=== PATIENT | female | born 1980 | race Two or more races ===

== ENCOUNTER → 2019-04-13 | Outpatient (CLI) | payer OTHER | END | disposition home or self-care (01) | LOC: LAB 13:33 | PROVIDERS: ATTEND Nurse Practitioner | DX: Z02.1 Encounter for pre-employment examination (principal) | CPT/HCPCS: 86735; 86762; 86765; 86787 ==

== ENCOUNTER 2020-09-06 18:29 | Emergency (ER) | payer MEDICAID, OTHER ==
[~2020-09-06] VITALS: Ht 157.5 cm; Wt 61.2 kg
[2020-09-06 19:09] LABS: Basophils # (auto) 0.1 10 ^3/uL (0-0.2); Basophils % (auto) 0.9 % (0.0-2.0); Eosinophils # (auto) 0.1 10 ^3/uL (0-0.8); Eosinophils % (auto) 2.1 % (0.0-7.0); Hematocrit 37.1 % (36.0-46.0); Hemoglobin 12.7 g/dL (12.2-16.2); Lymphocytes % (auto) 33.5 % (10.0-50.0); Mean Corpuscular Hemoglobin 29.7 pg (28.0-32.0); Mean Corpuscular Hgb Conc. 34.1 g/dL (32.0-36.0); Mean Corpuscular Volume 87.1 fL (80.0-100.0); Monocytes # (auto) 0.4 10 ^3/uL (0-1.3); Monocytes % (auto) 7.1 % (0.0-12.0); Neutrophils # (auto) 3.4 10 ^3/uL (1.6-8.6); Neutrophils % (auto) 56.4 % (37.0-80.0); Nucleated Red Blood Cells % 0.2 %; Platelet Count (auto) 315 10^3/uL (140-450); Red Blood Cells 4.26 10^6/uL (4.0-5.20); Red Cell Distribution Width 13.7 % (11.8-14.3); White Blood Cell 6.1 10^3/uL (4.4-10.8)
[2020-09-06 19:16] LABS: Albumin 4.2 g/dL (3.4-5.0); Anion Gap 4 (5-15); Blood Urea Nitrogen 10 mg/dL (7-18); Calcium 8.8 mg/dL (8.5-10.1); Carbon Dioxide 29 mmol/L (21-32); Chloride 109 mmol/L (98-107); Glucose 107 mg/dL (74-106); Potassium 3.5 mmol/L (3.5-5.1); Sodium 142 mmol/L (136-145)
[2020-09-06 19:21] LABS: Alanine Aminotransferase 20 U/L (13-56); Alkaline Phosphatase 81 U/L (45-117); Aspartate Aminotransferase 19 U/L (15-37); BUN/Creatinine Ratio 12.2; Bilirubin, Total 0.1 mg/dL (0.2-1.0); GFR African American 98 mL/min; GFR Non-African American 81 mL/min; Total Protein 8.1 g/dL (6.4-8.2)
[2020-09-06 19:38] LABS: Urine Bacteria NONE SEEN /hpf (None Seen); Urine Blood 1+ /uL (Negative); Urine Specific Gravity 1.022 (1.001-1.035); Urine WBC <1 /hpf (0 - 5)
[2020-09-06 22:10] VITALS: BP 111/71
== END 2020-09-06 23:54 | disposition home or self-care (01) ==
LOC: ER 18:29
DX: I24.9 Acute ischemic heart disease, unspecified (principal); R07.2 Precordial pain
CPT/HCPCS: 36415; 71045; 80053; 81001; 81025; 84484; 85025; 85379; 93005

== ENCOUNTER 2020-11-14 18:35 | Emergency (ER) | payer MEDICAID ==
[~2020-11-14] VITALS: Ht 157.5 cm; Wt 56.7 kg
[2020-11-14 18:43] VITALS: BP 128/74
== END 2020-11-14 20:25 | disposition home or self-care (01) ==
LOC: ER 18:40
DX: S61.210A Laceration without foreign body of right index finger without damage to nail, initial encounter (principal); S61.212A Laceration without foreign body of right middle finger without damage to nail, initial encounter; W26.8XXA Contact with other sharp object(s), not elsewhere classified, initial encounter; Y93.89 Activity, other specified; Y92.89 Other specified places as the place of occurrence of the external cause; Y99.8 Other external cause status
CPT/HCPCS: 12002

== ENCOUNTER → 2022-05-28 | Outpatient (CLI) | payer MEDICAID ==
[2022-05-28 10:14] LABS: Basophils # (auto) 0 10 ^3/uL (0-0.2); Basophils % (auto) 0.8 % (0.0-2.0); Eosinophils # (auto) 0.1 10 ^3/uL (0-0.8); Eosinophils % (auto) 1.7 % (0.0-7.0); Hematocrit 39.8 % (36.0-46.0); Hemoglobin 12.9 g/dL (12.2-16.2); Lymphocytes # (auto) 1.6 10 ^3/uL (0.4-5.4); Lymphocytes % (auto) 28.8 % (10.0-50.0); Mean Corpuscular Hgb Conc. 32.3 g/dL (32.0-36.0); Mean Corpuscular Volume 86.6 fL (80.0-100.0); Monocytes # (auto) 0.4 10 ^3/uL (0-1.3); Neutrophils # (auto) 3.4 10 ^3/uL (1.6-8.6); Neutrophils % (auto) 60.7 % (37.0-80.0); Red Cell Distribution Width 13.5 % (11.8-14.3); White Blood Cell 5.6 10^3/uL (4.4-10.8)
[2022-05-28 11:15] LABS: Leuteinizing Hormone 1.1 IU/L
[2022-05-28 11:16] LABS: Follicle Stimulating Hormone 2.84 IU/L (SEE BELOW)
== END | disposition home or self-care (01) ==
LOC: LAB 09:25
PROVIDERS: ATTEND Obstetrics & Gynecology
DX: N95.1 Menopausal and female climacteric states (principal)
CPT/HCPCS: 36415; 82670; 83001; 83002; 84403; 84443; 85025

== ENCOUNTER 2022-08-16 23:33 | Emergency (ER) | payer BC, MEDICAID ==
[~2022-08-16] VITALS: Ht 157.5 cm; Wt 66.8 kg
[2022-08-17 00:05] LABS: Urine Bacteria MANY /hpf (None Seen); Urine Blood Negative /uL (Negative); Urine Mucus FEW (None Seen); Urine Specific Gravity 1.022 (1.001-1.035); Urine WBC 2 /hpf (0 - 5)
[2022-08-17 00:12] LABS: Basophils # (auto) 0.1 10 ^3/uL (0-0.2); Basophils % (auto) 0.8 % (0.0-2.0); Eosinophils # (auto) 0.3 10 ^3/uL (0-0.8); Eosinophils % (auto) 3.3 % (0.0-7.0); Hematocrit 37.8 % (36.0-46.0); Hemoglobin 12.6 g/dL (12.2-16.2); Lymphocytes % (auto) 30.9 % (10.0-50.0); Mean Corpuscular Hemoglobin 28.7 pg (28.0-32.0); Mean Corpuscular Hgb Conc. 33.4 g/dL (32.0-36.0); Mean Corpuscular Volume 85.9 fL (80.0-100.0); Monocytes % (auto) 10.1 % (0.0-12.0); Neutrophils # (auto) 5.2 10 ^3/uL (1.6-8.6); Neutrophils % (auto) 54.9 % (37.0-80.0); Red Cell Distribution Width 14.1 % (11.8-14.3); White Blood Cell 9.6 10^3/uL (4.4-10.8)
[2022-08-17 01:24] LABS: Albumin 3.8 g/dL (3.4-5.0); Calcium 8.9 mg/dL (8.5-10.1); Potassium 3.5 mmol/L (3.5-5.1)
[2022-08-17 01:35] LABS: BUN/Creatinine Ratio 16.3; Bilirubin, Total 0.2 mg/dL (0.2-1.0); Total Protein 7.6 g/dL (6.4-8.2)
[2022-08-17] MEDS ORDERED: cefTRIAXone SOD 1,000 MG VL IM ONE (03:30)
[2022-08-17] MEDS ORDERED: ONDANSETRON ODT 4 MG TAB PO ONE (03:30)
[2022-08-17] MEDS ORDERED: HYDROcodone-ACET 10/325MG TAB PO ONE (03:30)
[2022-08-17] MEDS ORDERED: CEPH-322 PO (03:44)
[2022-08-17 04:50] VITALS: BP 112/72
== END 2022-08-17 04:59 | disposition home or self-care (01) ==
LOC: EEVIPCON 23:33 → ER 23:33
DX: K80.20 Calculus of gallbladder without cholecystitis without obstruction (principal); N39.0 Urinary tract infection, site not specified; R73.9 Hyperglycemia, unspecified; R10.84 Generalized abdominal pain; N94.89 Other specified conditions associated with female genital organs and menstrual cycle; Z91.040 Latex allergy status
CPT/HCPCS: 36415; 74176; 80053; 81001; 81025; 83690; 85025; 96372; 99285; J0696; Q0162

== ENCOUNTER → 2022-08-20 | Outpatient (CLI) | payer BC, MEDICAID ==
[~2022-08-20] MED LIST: CEPH-322 PO
== END | disposition home or self-care (01) ==
LOC: LAB 11:07
PROVIDERS: ATTEND Surgery Vascular Surgery
DX: Z01.812 Encounter for preprocedural laboratory examination (principal); I72.2 Aneurysm of renal artery
CPT/HCPCS: 36415; 82565; 84520

== ENCOUNTER 2022-09-20 06:28 | Day surgery (SDC) | payer BC, MEDICAID ==
[2022-09-17 15:46] LABS: Basophils # (auto) 0.1 10 ^3/uL (0-0.2); Basophils % (auto) 1.1 % (0.0-2.0); Eosinophils # (auto) 0.2 10 ^3/uL (0-0.8); Hematocrit 39.7 % (36.0-46.0); Hemoglobin 13.2 g/dL (12.2-16.2); Lymphocytes # (auto) 2.1 10 ^3/uL (0.4-5.4); Lymphocytes % (auto) 28.2 % (10.0-50.0); Mean Corpuscular Hemoglobin 28.7 pg (28.0-32.0); Mean Corpuscular Hgb Conc. 33.3 g/dL (32.0-36.0); Mean Corpuscular Volume 86.3 fL (80.0-100.0); Monocytes # (auto) 0.6 10 ^3/uL (0-1.3); Monocytes % (auto) 8.6 % (0.0-12.0); Neutrophils # (auto) 4.3 10 ^3/uL (1.6-8.6); Neutrophils % (auto) 59.1 % (37.0-80.0); Nucleated Red Blood Cells % 0.2 %; Red Blood Cells 4.61 10^6/uL (4.0-5.20); Red Cell Distribution Width 13.9 % (11.8-14.3); White Blood Cell 7.3 10^3/uL (4.4-10.8)
[2022-09-17 15:57] LABS: Albumin 4.1 g/dL (3.4-5.0); BUN/Creatinine Ratio 18.2 (10.0-20.0); Calcium 9.2 mg/dL (8.5-10.1); Potassium 3.9 mmol/L (3.5-5.1)
[2022-09-17 16:00] LABS: Bilirubin, Total 0.2 mg/dL (0.2-1.0); Total Protein 8.1 g/dL (6.4-8.2)
[2022-09-17 16:11] LABS: INR 0.91 (0.9-1.15); Partial Thromboplastin Time 29.6 sec (24.6-33.4)
[2022-09-18 10:11] LABS: Urine WBC None Seen /hpf (0 - 5)
[2022-09-18 10:19] LABS: Urine Bacteria FEW /hpf (None Seen); Urine Blood Negative /uL (Negative); Urine Specific Gravity 1.003 (1.001-1.035)
[~2022-09-20] VITALS: Ht 157.5 cm; Wt 68.9 kg
[2022-09-20] MEDS ORDERED: PHENYLEPHRINE HCL 10 MG/ML VL IV ONE (06:29)
[2022-09-20] MEDS ORDERED: ROCURONIUM 10MG/ML 10ML VIAL IV ONE (06:29)
[2022-09-20] MEDS ORDERED: BUPIVACAINE 0.25% INJ 50ML VIAL ONE (06:43)
[2022-09-20] MEDS ORDERED: ceFAZolin 1GM/50ML 100 ML IV ONE (07:14)
[2022-09-20] MEDS ORDERED: MEPERIDINE HCL (25 MG/ML) 1ML VIAL ONE (07:39)
[2022-09-20] MEDS ORDERED: MIDAZOLAM HCL 2MG/2ML 2ml VIAL (1mg/ml) ONE (07:39)
[2022-09-20] MEDS ORDERED: fentaNYL CITRATE 100 MCG/2 ML VL ONE (07:39)
[2022-09-20] MEDS ORDERED: ONDANSETRON HCL 4 MG/2 ML VIAL ONE (08:32)
[2022-09-20] MEDS ORDERED: PROPOFOL 10 MG/ML 20 ML IV ONE (08:32)
[2022-09-20] MEDS ORDERED: DexAMETHasone SOD PHOS 10MG/1ML VIAL INJ ONE (08:32)
[2022-09-20] MEDS ORDERED: KETOROLAC TROMETH 30 MG/ML 1ML VIAL IV ONE (08:45)
[2022-09-20] MEDS ORDERED: ONDANSETRON HCL 4 MG/2 ML VIAL IV PRN ×2 (08:45→10:00)
[2022-09-20] MEDS ORDERED: MIDAZOLAM HCL 2MG/2ML 2ml VIAL (1mg/ml) IV PRN (08:45)
[2022-09-20] MEDS ORDERED: MORPHINE SULFATE 4 MG/ML SYR/VIAL IV PRN (08:45)
[2022-09-20] MEDS ORDERED: METOCLOPRAMIDE HCL 5MG/ml INJ 2ml VIAL IV PRN (08:45)
[2022-09-20] MEDS ORDERED: LABETALOL HCL 5 MG/ML 4ML SYRINGE IV PRN (08:45)
[2022-09-20] MEDS ORDERED: ePHEDrine SULFATE 50 MG/ML AMP IV PRN (08:45)
[2022-09-20] MEDS ORDERED: SUGAMMADEX 200mg/2ml Vial (100MG/ML) IV ONE (09:43)
[2022-09-20] MEDS ORDERED: ACETAMINOPHEN IV 1000 MG/100ML (10MG/ML) IV ONE (10:00)
[2022-09-20] MEDS ORDERED: LACTATED RINGER'S 1,000 ML IV SCH (10:00)
[2022-09-20] MEDS ORDERED: ACETAMINOPHEN IV 100 ML IV ONE (10:08)
[2022-09-20] MEDS: HYDROmorphone HCL 2 MG/ML VL/or syr IV PRN ×2 (10:18→10:55)
[2022-09-20 12:08] VITALS: BP 118/80
== END 2022-09-20 12:24 | disposition home or self-care (01) ==
LOC: SUR 06:28
PROVIDERS: ATTEND Obstetrics & Gynecology Gynecologic Oncology
DX: D25.9 Leiomyoma of uterus, unspecified (principal); N88.8 Other specified noninflammatory disorders of cervix uteri; N92.0 Excessive and frequent menstruation with regular cycle; R10.2 Pelvic and perineal pain; Z20.822 Contact with and (suspected) exposure to COVID-19
CPT/HCPCS: 36415; 58571; 80053; 81001; 84702; 85025; 85610; 85730; 86850; 86900; 86901; 88305; J0131; J0690; J1100; J1170; J2175; J2250; J2370; J2405; J2704; J3010; J3490; J7030; S2900; U0003

== ENCOUNTER 2022-10-08 10:05 | Inpatient (IN) | payer BC, MEDICAID ==
[~2022-10-08] VITALS: Ht 157.5 cm; Wt 65.0 kg
[2022-10-08 10:58] LABS: Urine Bacteria FEW /hpf (None Seen); Urine Blood 3+ /uL (Negative); Urine Specific Gravity 1.003 (1.001-1.035); Urine WBC <1 /hpf (0 - 5)
[2022-10-08 11:21] LABS: Basophils # (auto) 0.1 10 ^3/uL (0-0.2); Basophils % (auto) 0.7 % (0.0-2.0); Eosinophils # (auto) 0.2 10 ^3/uL (0-0.8); Eosinophils % (auto) 1.7 % (0.0-7.0); Hemoglobin 12.4 g/dL (12.2-16.2); Lymphocytes # (auto) 1.7 10 ^3/uL (0.4-5.4); Monocytes # (auto) 0.6 10 ^3/uL (0-1.3); Neutrophils # (auto) 7.1 10 ^3/uL (1.6-8.6); White Blood Cell 9.6 10^3/uL (4.4-10.8)
[2022-10-08 11:26] LABS: Hematocrit 37.3 % (36.0-46.0); Lymphocytes % (auto) 18.2 % (10.0-50.0); Mean Corpuscular Hemoglobin 28.2 pg (28.0-32.0); Mean Corpuscular Hgb Conc. 33.3 g/dL (32.0-36.0); Mean Corpuscular Volume 84.4 fL (80.0-100.0); Monocytes % (auto) 5.9 % (0.0-12.0); Neutrophils % (auto) 73.5 % (37.0-80.0); Nucleated Red Blood Cells % 0.2 %; Red Blood Cells 4.41 10^6/uL (4.0-5.20); Red Cell Distribution Width 14.2 % (11.8-14.3)
[2022-10-08 11:40] LABS: Potassium 4.5 mmol/L (3.5-5.1)
[2022-10-08 11:43] LABS: INR 0.96 (0.9-1.15); Partial Thromboplastin Time 30.5 sec (24.6-33.4)
[2022-10-08 11:50] LABS: Albumin 3.8 g/dL (3.4-5.0); BUN/Creatinine Ratio 9.8 (10.0-20.0); Bilirubin, Total 0.2 mg/dL (0.2-1.0); Calcium 9.9 mg/dL (8.5-10.1)
[2022-10-08] MEDS ORDERED: LACTATED RINGER'S 1,000 ML IV ONE (12:45)
[2022-10-08] MEDS ORDERED: SODIUM CHLORIDE 0.9% 2,000 ML IV ONE (13:15)
[2022-10-08 14:40] LABS: Hemoglobin 9.7 g/dL (12.2-16.2)
[2022-10-08 14:42] LABS: Mean Corpuscular Hemoglobin 28.3 pg (28.0-32.0); Mean Corpuscular Hgb Conc. 33.5 g/dL (32.0-36.0); Mean Corpuscular Volume 84.6 fL (80.0-100.0); Red Blood Cells 3.43 10^6/uL (4.0-5.20); Red Cell Distribution Width 13.7 % (11.8-14.3)
[2022-10-08] MEDS ORDERED: NITROGLYCERIN 0.4 MG SL TAB SL PRN (14:45)
[2022-10-08] MEDS ORDERED: MORPHINE SULFATE INJ 2 MG/ml SYRG IV PRN (14:45)
[2022-10-08 15:09] LABS: % Iron Saturation 26.1 % (15-50)
[2022-10-08 15:23] LABS: Ferritin 74.8 ng/mL (10-322)
[2022-10-08 15:24] LABS: Folate (Folic Acid) 17.19 ng/mL (5.38-24)
[2022-10-08 15:33] LABS: White Blood Cell 31.4 10^3/uL (4.4-10.8)
[2022-10-08 15:35] LABS: Basophils % (manual) 0 (0.0-2.0); Blast Cells 0; Eosinophils % (manual) 0 (0-7); Metamyelocytes % 0; Myelocytes % 0; Promyelocytes % 0; Reactive Lymphocytes 0
[2022-10-08 16:37] LABS: Band Neutrophils % (manual) 4; Lymphocytes % (manual) 5 (10.0-50.0); Monocytes % (manual) 3 (0-12)
[2022-10-08 16:49] VITALS: BP 95/62
[2022-10-08] MEDS ORDERED: LACTATED RINGER'S 1,000 ML IV SCH (17:15)
[2022-10-08] MEDS ORDERED: PIPERACILLIN-TAZOB 3.375GM 100 ML IV ONE (17:30)
[2022-10-08 17:40] VITALS: BP 117/74
[2022-10-08 17:54] LABS: Hemoglobin 9.9 g/dL (12.2-16.2)
[2022-10-08 17:55] VITALS: BP 110/68
[2022-10-08] MEDS ORDERED: PIPERACILLIN-TAZOB 3.375GM 100 ML IV SCH (22:00)
== END 2022-10-08 20:04 | disposition left against medical advice (07) | DRG 810 ==
LOC: EDBD 10:05 → EEVIPCON 10:05 → ER 10:05 → TELE 14:33 → TELE-WESTW 16:35
PROVIDERS: ADMIT Registered Nurse; ATTEND Registered Nurse
PROC: 30233N1 Transfusion of Nonautologous Red Blood Cells into Peripheral Vein, Percutaneous Approach (ICD-10-PCS; principal; 2022-10-08)
DX: N99.820 Postprocedural hemorrhage of a genitourinary system organ or structure following a genitourinary system procedure (principal); D69.6 Thrombocytopenia, unspecified; Z53.29 Procedure and treatment not carried out because of patient's decision for other reasons; D75.839 Thrombocytosis, unspecified; N83.201 Unspecified ovarian cyst, right side; Z90.710 Acquired absence of both cervix and uterus; Z91.041 Radiographic dye allergy status; D62 Acute posthemorrhagic anemia
CPT/HCPCS: 36415; 74176; 76856; 80053; 81001; 81025; 82607; 82728; 82746; 82962; 83540; 83550; 83615; 84702; 85007; 85014; 85018; 85025; 85027; 85045; 85049; 85384; 85610; 85652; 85730; 86141; 86850; 86900; 86901; 86920; 93005; 93306; 93886; 96360; 99291; G0378; J2543

== ENCOUNTER → 2023-02-13 | Outpatient (CLI) | payer MEDICAID, BC ==
[2023-02-13 15:02] LABS: Albumin 3.7 g/dL (3.4-5.0)
[2023-02-13 15:08] LABS: Alanine Aminotransferase 58 U/L (13-56); Alkaline Phosphatase 75 U/L (45-117); Aspartate Aminotransferase 25 U/L (15-37); Bilirubin, Direct < 0.1 mg/dL (0-0.2); Bilirubin, Total 0.2 mg/dL (0.2-1.0); Total Protein 7.4 g/dL (6.4-8.2)
== END | disposition home or self-care (01) ==
LOC: LAB 14:25
PROVIDERS: ATTEND Internal Medicine
DX: R74.01 Elevation of levels of liver transaminase levels (principal)
CPT/HCPCS: 36415; 80076

== ENCOUNTER → 2023-04-04 | Outpatient (CLI) | payer BC, MEDICAID ==
[2023-04-04 08:46] LABS: Anion Gap 6 (5-15); Carbon Dioxide 29 mmol/L (20-30); Chloride 106 mmol/L (98-107); Potassium 4.6 mmol/L (3.5-5.1); Sodium 141 mmol/L (136-145)
[2023-04-04 08:47] LABS: Calcium 9.6 mg/dL (8.5-10.1)
[2023-04-04 08:52] LABS: BUN/Creatinine Ratio 7.3 (10.0-20.0); Blood Urea Nitrogen 6 mg/dL (9-23); Glucose 97 mg/dL (74-106)
== END | disposition home or self-care (01) ==
LOC: LAB 08:18
PROVIDERS: ATTEND Internal Medicine
DX: R30.0 Dysuria (principal); R39.9 Unspecified symptoms and signs involving the genitourinary system
CPT/HCPCS: 36415; 80048; 83036

== ENCOUNTER 2023-05-06 08:07 | Emergency (ER) | payer BC, MEDICAID ==
[~2023-05-06] VITALS: Ht 157.5 cm; Wt 68.8 kg
[2023-05-06 08:57] LABS: Basophils # (auto) 0 10 ^3/uL (0-0.2); Basophils % (auto) 0.7 % (0.0-2.0); Eosinophils # (auto) 0.1 10 ^3/uL (0-0.8); Eosinophils % (auto) 1.5 % (0.0-7.0); Hematocrit 39.7 % (36.0-46.0); Hemoglobin 13.4 g/dL (12.2-16.2); Lymphocytes # (auto) 2.1 10 ^3/uL (0.4-5.4); Lymphocytes % (auto) 32.6 % (10.0-50.0); Mean Corpuscular Hemoglobin 29.3 pg (28.0-32.0); Mean Corpuscular Hgb Conc. 33.8 g/dL (32.0-36.0); Mean Corpuscular Volume 86.7 fL (80.0-100.0); Monocytes # (auto) 0.6 10 ^3/uL (0-1.3); Monocytes % (auto) 9.1 % (0.0-12.0); Neutrophils # (auto) 3.7 10 ^3/uL (1.6-8.6); Neutrophils % (auto) 56.1 % (37.0-80.0); Nucleated Red Blood Cells % 0.1 %; Red Blood Cells 4.58 10^6/uL (4.0-5.20); Red Cell Distribution Width 13.4 % (11.8-14.3); White Blood Cell 6.5 10^3/uL (4.4-10.8)
[2023-05-06 09:10] LABS: Alanine Aminotransferase 25 U/L (7-40); Albumin 4.8 g/dL (3.2-4.8); Alkaline Phosphatase 78 U/L (46-116); Anion Gap 6 (5-15); Aspartate Aminotransferase 17 U/L (13-40); BUN/Creatinine Ratio 9.1 (10.0-20.0); Bilirubin, Total 0.5 mg/dL (0.2-1.0); Blood Urea Nitrogen 7 mg/dL (9-23); Calcium 9.9 mg/dL (8.5-10.1); Carbon Dioxide 28 mmol/L (20-30); Chloride 105 mmol/L (98-107); Glucose 107 mg/dL (74-106); Sodium 139 mmol/L (136-145); Total Protein 7.4 g/dL (5.7-8.2); Urine Bacteria NONE SEEN /hpf (None Seen); Urine Blood Negative /uL (Negative); Urine Clarity Clear (Clear); Urine Color Yellow (Yellow); Urine Mucus FEW (None Seen); Urine Protein, UAD Negative (Negative); Urine Specific Gravity 1.018 (1.001-1.035); Urine Urobilinogen Normal (Negative); Urine WBC 1 /hpf (0 - 5); Urine pH 6.5 (5.0-8.0)
[2023-05-06 12:09] VITALS: BP 131/98; PULSE 75; RESP 18; TEMP 97.8; O2SAT 100
== END 2023-05-06 12:14 | disposition home or self-care (01) ==
LOC: ER 08:07 → EEVIPCON 08:07 → ER 12:13
DX: R07.89 Other chest pain (principal); R61 Generalized hyperhidrosis; R51.9 Headache, unspecified; Z91.041 Radiographic dye allergy status; Z90.710 Acquired absence of both cervix and uterus
CPT/HCPCS: 36415; 71045; 80053; 81001; 84484; 85025; 93005

== ENCOUNTER → 2023-08-14 | Outpatient (CLI) | payer BC, MEDICAID | END | disposition home or self-care (01) | LOC: LAB 10:06 | PROVIDERS: ATTEND Anesthesiology | DX: R30.0 Dysuria (principal) | CPT/HCPCS: 87086 ==

== ENCOUNTER 2023-08-22 14:04 | Emergency (ER) | payer BC, MEDICAID ==
[~2023-08-22] VITALS: Ht 157.5 cm; Wt 70.5 kg
[2023-08-22 15:06] LABS: Urine Bacteria NONE SEEN /hpf (None Seen); Urine Blood TRACE /uL (Negative); Urine Clarity Clear (Clear); Urine Color Colorless (Yellow); Urine Protein, UAD Negative (Negative); Urine Specific Gravity 1.013 (1.001-1.035); Urine Urobilinogen Normal (Negative); Urine WBC <1 /hpf (0 - 5)
[2023-08-22 15:10] LABS: Basophils # (auto) 0.1 10 ^3/uL (0-0.2); Basophils % (auto) 0.8 % (0.0-2.0); Eosinophils # (auto) 0.1 10 ^3/uL (0-0.8); Eosinophils % (auto) 1.1 % (0.0-7.0); Hematocrit 39.2 % (36.0-46.0); Lymphocytes # (auto) 2.2 10 ^3/uL (0.4-5.4); Lymphocytes % (auto) 31.2 % (10.0-50.0); Mean Corpuscular Hemoglobin 28.4 pg (28.0-32.0); Mean Corpuscular Hgb Conc. 33.1 g/dL (32.0-36.0); Mean Corpuscular Volume 85.7 fL (80.0-100.0); Monocytes # (auto) 0.6 10 ^3/uL (0-1.3); Monocytes % (auto) 8.5 % (0.0-12.0); Neutrophils # (auto) 4.1 10 ^3/uL (1.6-8.6); Neutrophils % (auto) 58.4 % (37.0-80.0); Red Blood Cells 4.57 10^6/uL (4.0-5.20); Red Cell Distribution Width 13.9 % (11.8-14.3)
[2023-08-22 15:15] LABS: Chloride 104 mmol/L (98-107); Potassium 3.5 mmol/L (3.5-5.1); Sodium 139 mmol/L (136-145)
[2023-08-22 15:16] LABS: Anion Gap 4 (5-15); Calcium 9.6 mg/dL (8.7-10.4); Carbon Dioxide 31 mmol/L (20-30)
[2023-08-22 15:19] VITALS: BP 168/78; PULSE 78; RESP 18; TEMP 97.4; O2SAT 100
[2023-08-22 15:21] LABS: BUN/Creatinine Ratio 8.9 (10.0-20.0); Blood Urea Nitrogen 8 mg/dL (9-23); Glucose 174 mg/dL (74-106)
== END 2023-08-22 16:37 | disposition home or self-care (01) ==
LOC: ER 14:04
DX: K80.20 Calculus of gallbladder without cholecystitis without obstruction (principal); R10.2 Pelvic and perineal pain; R73.9 Hyperglycemia, unspecified; Z98.890 Other specified postprocedural states; Z85.9 Personal history of malignant neoplasm, unspecified; Z91.041 Radiographic dye allergy status
CPT/HCPCS: 36415; 74176; 80048; 81001; 85025

== ENCOUNTER 2023-12-04 07:18 | Emergency (ER) | payer BC, MEDICAID ==
[~2023-12-04] VITALS: Ht 157.5 cm; Wt 68.2 kg
[2023-12-04 08:27] LABS: Urine Bacteria None Seen /hpf (None Seen)
[2023-12-04 08:44] LABS: Urine Blood 2+ /uL (Negative); Urine Clarity Turbid (Clear); Urine Color Colorless (Yellow); Urine Protein, UAD 1+ (Negative); Urine Specific Gravity 1.022 (1.001-1.035); Urine Urobilinogen Normal (Negative); Urine WBC 697 /hpf (0 - 5)
[2023-12-04] MEDS: SODIUM CHLORIDE 0.9% 1,000 ML IV ONE ×2 (08:59)
[2023-12-04 09:07] LABS: Basophils # (auto) 0.1 10 ^3/uL (0-0.2); Basophils % (auto) 0.7 % (0.0-2.0); Eosinophils # (auto) 0.1 10 ^3/uL (0-0.8); Eosinophils % (auto) 1.3 % (0.0-7.0); Lymphocytes # (auto) 1.8 10 ^3/uL (0.4-5.4); Lymphocytes % (auto) 18.2 % (10.0-50.0); Mean Corpuscular Hemoglobin 29.1 pg (28.0-32.0); Mean Corpuscular Hgb Conc. 34.1 g/dL (32.0-36.0); Mean Corpuscular Volume 85.3 fL (80.0-100.0); Neutrophils % (auto) 69.8 % (37.0-80.0); Nucleated Red Blood Cells % 0.1 %; Red Blood Cells 4.45 10^6/uL (4.0-5.20); Red Cell Distribution Width 13.8 % (11.8-14.3)
[2023-12-04 09:16] LABS: Alanine Aminotransferase 22 U/L (7-40); Albumin 4.6 g/dL (3.2-4.8); Alkaline Phosphatase 74 U/L (46-116); Anion Gap 4 (5-15); Aspartate Aminotransferase 16 U/L (13-40); BUN/Creatinine Ratio 11.1 (10.0-20.0); Blood Urea Nitrogen 8 mg/dL (9-23); Calcium 9.8 mg/dL (8.5-10.1); Carbon Dioxide 30 mmol/L (20-30); Chloride 105 mmol/L (98-107); Glucose 103 mg/dL (74-106); Sodium 139 mmol/L (136-145)
[2023-12-04 09:17] LABS: Bilirubin, Total 0.6 mg/dL (0.2-1.0); Total Protein 7.5 g/dL (5.7-8.2)
[2023-12-04 11:41] LABS: Lipase 32 U/L (12-53)
[2023-12-04] MEDS ORDERED: NITR-87 PO (11:50)
[2023-12-04 11:58] VITALS: PULSE 90; RESP 20; O2SAT 96
[2023-12-04] MEDS: cefTRIAXone 1GM/50ML D5W 50 ML IV ONE (11:58)
[2023-12-04 12:20] VITALS: BP 118/48; PULSE 82; RESP 18; TEMP 98.2; O2SAT 100
== END 2023-12-04 12:36 | disposition home or self-care (01) ==
LOC: ER 07:18 → EEVIPCON 07:18 → ER 12:36
DX: N39.0 Urinary tract infection, site not specified (principal); K80.20 Calculus of gallbladder without cholecystitis without obstruction; Z85.9 Personal history of malignant neoplasm, unspecified; Z98.890 Other specified postprocedural states; Z91.041 Radiographic dye allergy status
CPT/HCPCS: 36415; 80053; 81001; 83690; 85025; 96361; 96365; 99285; J0696; J7030

== ENCOUNTER 2023-12-29 17:40 | Emergency (ER) | payer BC, MEDICAID ==
[~2023-12-29] VITALS: Ht 152.4 cm; Wt 69.8 kg
[~2023-12-29 17:40] MED LIST changes: -CEPH-322 PO; +NITR-87 PO
[2023-12-29 20:50] LABS: Basophils # (auto) 0.1 10 ^3/uL (0-0.2); Basophils % (auto) 0.7 % (0.0-2.0); Eosinophils # (auto) 0.1 10 ^3/uL (0-0.8); Eosinophils % (auto) 1.4 % (0.0-7.0); Hematocrit 40.4 % (36.0-46.0); Hemoglobin 13.8 g/dL (12.2-16.2); Lymphocytes # (auto) 2.9 10 ^3/uL (0.4-5.4); Lymphocytes % (auto) 34.7 % (10.0-50.0); Mean Corpuscular Hemoglobin 29.1 pg (28.0-32.0); Mean Corpuscular Hgb Conc. 34.2 g/dL (32.0-36.0); Mean Corpuscular Volume 85.1 fL (80.0-100.0); Monocytes # (auto) 0.6 10 ^3/uL (0-1.3); Monocytes % (auto) 7.8 % (0.0-12.0); Neutrophils # (auto) 4.6 10 ^3/uL (1.6-8.6); Neutrophils % (auto) 55.4 % (37.0-80.0); Nucleated Red Blood Cells % 0.2 %; Red Blood Cells 4.74 10^6/uL (4.0-5.20); Red Cell Distribution Width 13.9 % (11.8-14.3); White Blood Cell 8.3 10^3/uL (4.4-10.8)
[2023-12-29 21:05] LABS: Alanine Aminotransferase 20 U/L (7-40); Alkaline Phosphatase 80 U/L (46-116); Anion Gap 6 (5-15); Aspartate Aminotransferase 13 U/L (13-40); BUN/Creatinine Ratio 9.9 (10.0-20.0); Blood Urea Nitrogen 7 mg/dL (9-23); Calcium 10.5 mg/dL (8.7-10.4); Carbon Dioxide 27 mmol/L (20-30); Chloride 107 mmol/L (98-107); Glucose 115 mg/dL (74-106); Potassium 3.7 mmol/L (3.5-5.1); Sodium 140 mmol/L (136-145)
[2023-12-29 21:06] LABS: Albumin 4.8 g/dL (3.2-4.8); Bilirubin, Total 0.3 mg/dL (0.2-1.0); Total Protein 8.1 g/dL (5.7-8.2)
[2023-12-29] MEDS ORDERED: NAP500T GT (21:44)
[2023-12-29] MEDS ORDERED: IBU600T PO (21:46)
[2023-12-29 23:10] VITALS: BP 152/87; PULSE 85; RESP 12; TEMP 98.7; O2SAT 97
== END 2023-12-29 23:09 | disposition home or self-care (01) ==
LOC: EEVIPCON 17:40 → ER 17:40
DX: N83.202 Unspecified ovarian cyst, left side (principal); Z90.49 Acquired absence of other specified parts of digestive tract; Z91.041 Radiographic dye allergy status; Z90.710 Acquired absence of both cervix and uterus
CPT/HCPCS: 36415; 76856; 80053; 85025

== ENCOUNTER → 2024-03-12 | Outpatient (CLI) | payer BC, MEDICAID ==
[~2024-03-12] MED LIST changes: +IBU600T PO; +NAP500T GT
== END | disposition home or self-care (01) ==
LOC: LAB 07:50
PROVIDERS: ATTEND Internal Medicine
DX: E55.9 Vitamin D deficiency, unspecified (principal)
CPT/HCPCS: 82306

== ENCOUNTER → 2024-05-06 | Outpatient (CLI) | payer BC, MEDICAID | END | disposition home or self-care (01) | LOC: LAB 10:26 | PROVIDERS: ATTEND Registered Nurse | DX: R30.0 Dysuria (principal) | CPT/HCPCS: 87086 ==

== ENCOUNTER → 2024-10-26 | Outpatient (CLI) | payer BC, MEDICAID ==
[2024-10-26 07:45] LABS: Basophils # (auto) 0 10 ^3/uL (0-0.2); Basophils % (auto) 0.8 % (0.0-2.0); Eosinophils # (auto) 0.2 10 ^3/uL (0-0.8); Eosinophils % (auto) 2.9 % (0.0-7.0); Hemoglobin 13.2 g/dL (12.2-16.2); Lymphocytes % (auto) 32.3 % (10.0-50.0); Mean Corpuscular Hemoglobin 28.7 pg (28.0-32.0); Mean Corpuscular Hgb Conc. 33.7 g/dL (32.0-36.0); Mean Corpuscular Volume 85.1 fL (80.0-100.0); Monocytes # (auto) 0.6 10 ^3/uL (0-1.3); Monocytes % (auto) 9.5 % (0.0-12.0); Neutrophils # (auto) 3.3 10 ^3/uL (1.6-8.6); Neutrophils % (auto) 54.5 % (37.0-80.0); Nucleated Red Blood Cells % 0.1 %; Platelet Count (auto) 285 10^3/uL (140-450); Red Blood Cells 4.59 10^6/uL (4.0-5.20); Red Cell Distribution Width 13.9 % (11.8-14.3); White Blood Cell 6.1 10^3/uL (4.4-10.8)
[2024-10-26 07:54] LABS: Urine Bacteria FEW /hpf (None Seen); Urine Blood Negative /uL (Negative); Urine Clarity Clear (Clear); Urine Color Light-Yellow (Yellow); Urine Protein, UAD Negative (Negative); Urine Specific Gravity 1.018 (1.001-1.035); Urine Squamous Epithelial Cell FEW /hpf (<5); Urine Urobilinogen Normal (Negative); Urine WBC < 1 /HPF (0-5)
[2024-10-26 08:25] LABS: Alanine Aminotransferase 16 U/L (7-40); Albumin 4.7 g/dL (3.2-4.8); Alkaline Phosphatase 78 U/L (46-116); Anion Gap 9 (5-15); Aspartate Aminotransferase 14 U/L (13-40); Blood Urea Nitrogen 10 mg/dL (9-23); Calcium 10.2 mg/dL (8.7-10.4); Carbon Dioxide 27 mmol/L (20-31); Chloride 103 mmol/L (98-107); HDL Cholesterol 55 mg/dL (40-59); Potassium 4.2 mmol/L (3.5-5.1); Sodium 139 mmol/L (136-145); Total Protein 7.6 g/dL (5.7-8.2); Triglycerides 139 mg/dL (< 150)
[2024-10-26 08:26] LABS: Bilirubin, Total 0.5 mg/dL (0.2-1.0)
[2024-10-26 08:41] LABS: Cholesterol 208 mg/dL (< 200); Glucose 115 mg/dL (74-106); LDL Cholesterol 140 mg/dL (< 100)
[2024-10-26 09:13] LABS: Free T4 (Free Thyroxine) 0.95 ng/dL (0.89-1.76)
[2024-10-26 09:14] LABS: Follicle Stimulating Hormone 11.63 IU/L (SEE BELOW)
== END | disposition home or self-care (01) ==
LOC: LAB 07:25
PROVIDERS: ATTEND Internal Medicine
DX: Z00.01 Encounter for general adult medical examination with abnormal findings (principal)
CPT/HCPCS: 36415; 80053; 80061; 81001; 82306; 82607; 83001; 83036; 84439; 84443; 85025

== ENCOUNTER 2024-11-16 18:41 | Emergency (ER) | payer BC, MEDICAID ==
[~2024-11-16] VITALS: Ht 157.5 cm; Wt 66.0 kg
--- NOTE | 2024-11-16 19:03 | ED.PDOC ---
History of Present Illness HPI Comments This is a 44-year-old female that presents with 3x week history of constant, left flank pain. Patient reports on pain being worse when bending to her left- side and it radiating to her right-flank area via wrapping around her back. She endorses on having associated nausea for 3x days and bloating and excessive burping, today. Pain is managed via [id number] 800mg Ibuprofen. She also reports on having an ultrasound performed on 11/12/24 and being recommended by her PCP to see a urologist to r/o hydronephrosis. Patient states only history of gallstones s/p cholecystectomy, kidney stones s/p lithotripsy, left- oophorectomy, and partial hysterectomy. Denies any urinary symptoms, fever, chills, vomiting, abdominal pain, or further associated symptoms or modifiers. Chief Complaint: Flank Pain Time Seen by MD: 18:45 Primary Care Provider: KAROLINA CASTANEDA Reviewed Notes: Nurses Notes, Medications, Allergies Allergies: Coded Allergies: Iodine (Verified Allergy, Unknown, 08/16/22) Uncoded Allergies: CONTRAST DYE (Allergy, Unknown, 08/16/22) Home Meds Active Scripts Gabapentin (Once-Daily) (Gabapentin) 300 Mg Tab, 300 MG PO Q6HP PRN, #30 TAB Prov:ELOY ANDERSON MD 11/16/24 Ibuprofen Micronized (MOTRIN TABLET) 600 Mg Tb, 800 MG PO TID PRN for 10 Days, #40 TAB *Black box warning-NSAIDS can increase risk of OH & hypertension, GI irritation, ulceration, bleed, perferation. Do not use post cardiac surgery. Use short duration/lowest effective dose. Prov:DANIE COSTA MD 12/29/23 Naproxen (NAPROSYN TABLET) 500 Mg Tb, 500 MG GT BID for 14 Days, #28 TAB Prov:DANIE COSTA MD 12/29/23 Nitrofurantoin Monohydrate Mac (Macrobid) 100 Mg Cap, 100 MG PO BID for 10 Days, #20 CAP Prov:OSMANY NAJERA MD 12/04/23 Information Source: Patient Mode of Arrival: Ambulatory Severity: Moderate Timing: Weeks Duration: Since onset Prehospital treatment: Pain Meds Past Medical History PAST MEDICAL HISTORY: Anemia, Gallstones, Kidney Stones Surgical History: Cholecystectomy, Hysterectomy (partial) Surgical History (Other): lithotripsy [employer] History: Ovarian Cysts (left), Uterine Fibroids, Other Family History Family History: Reviewed,noncontributory to illness Social History Smoker: Non-Smoker Alcohol: Denies ETOH Use Drugs: Denies Drug Use Lives In: Home All Other Systems: Reviewed and Negative (Comprehensive systems review obtained and negative except for what is stated in the HPI.) Physical Exam General Appearance: Mild Distress, Normal HEENT: Normal ENT Inspection, Pharynx Normal, TMs Normal Neck: Full Range of Motion, Non-Tender, Normal, Normal Inspection Respiratory: Chest Non-Tender, Lungs Clear, No Accessory Muscle Use, No Resp iratory Distress, Normal Breath Sounds Cardiovascular: No Edema, No JVD, No Murmur, No Gallop, Normal Peripheral Pulses, Regular Rate/Rhythm Breast Exam: Deferred Gastrointestinal: No Organomegaly, Non Tender, No Pulsatile Mass, Normal Bowel Sounds, Soft Genitalia: Deferred Pelvic: Deferred Rectal: Deferred Extremities: No calf tenderness, Normal capillary refill, Normal inspection, Normal range of motion, Non-tender, No pedal edema Musculoskeletal : Location: Left Extremity Location: Other (CVA) Apperance: Normal, Tenderness Neurologic: Alert, hand sole sewer II-XII nml as Tested, No Motor Deficits, Normal Affect, Normal Mood, No Sensory Deficits Cerebellar Function: Normal Reflexes: Normal Skin: Dry, Normal Color, Warm Lymphatic: No Adenopathy Was a procedure done? Was a procedure done?: No Differential Dx Considerations may include: hydronephrosis, nephrolithiasis, UTI, PID, among others X-Ray, Labs, Meds, VS Vital Signs Date Time Temp Pulse Resp B/P (MAP) Pulse Ox O2 Delivery O2 Flow Rate FiO2 11/16/24 21:42 88 20 96 Room Air 11/16/24 21:42 97.4 88 20 130/66 (87) 96 97.4 11/16/24 19:03 98.4 71 16 152/91 (111) 100 98.4 Lab Test 11/16/24 19:20 Range/Units White Blood Count 6.8 4.4-10.8 10^3/uL Red Blood Count 4.56 4.0-5.20 10^6/uL Hemoglobin 13.1 12.2-16.2 g/dL Hematocrit 39.0 36.0-46.0 % Mean Corpuscular Volume 85.4 80.0-100.0 fL Mean Corpuscular Hemoglobin 28.6 28.0-32.0 pg Mean Corpuscular Hemoglobin Concent 33.5 32.0-36.0 g/dL Red Cell Distribution Width 13.9 11.8-14.3 % Platelet Count 302 140-450 10^3/uL Mean Platelet Volume 8.6 6.9-10.8 fL Neutrophils (%) (Auto) 48.8 37.0-80.0 % Lymphocytes (%) (Auto) 41.1 10.0-50.0 % Monocytes (%) (Auto) 6.8 0.0-12.0 % Eosinophils (%) (Auto) 2.5 0.0-7.0 % Basophils (%) (Auto) 0.8 0.0-2.0 % Neutrophils # (Auto) 3.3 1.6-8.6 10 ^3/uL Lymphocytes # (Auto) 2.8 0.4-5.4 10 ^3/uL Monocytes # (Auto) 0.5 0-1.3 10 ^3/uL Eosinophils # (Auto) 0.2 0-0.8 10 ^3/uL Basophils # (Auto) 0.1 0-0.2 10 ^3/uL Nucleated Red Blood Cells 0.1 % Urine Color Colorless Yellow Urine Clarity Clear Clear Urine pH 6.5 5.0-9.0 Urine Specific [place] 1.005 1.001-1.035 Urine Protein Negative Negative Urine Ketones Negative Negative Urine Blood Negative Negative /uL Urine Nitrite Negative Negative Urine Bilirubin Negative Negative Urine Urobilinogen Normal Negative mg/dL Urine Leukocyte Esterase Negative Negative /uL Urine RBC 1 0 - 4 /hpf Urine Microscopic WBC 1 0-5 /HPF Urine Squamous Epithelial Cells Few <5 /hpf Urine Bacteria None seen None Seen /hpf Urine Glucose Normal Normal mg/dL Urine Test Negative Negative Sodium Level 142 136-145 mmol/L Potassium Level 3.5 3.5-5.1 mmol/L Chloride Level 105 98-107 mmol/L Carbon Dioxide Level 29 20-31 mmol/L Anion Gap 8 5-15 Blood Urea Nitrogen 7 L 9-23 mg/dL Creatinine 0.68 0.550-1.02 mg/dL Glomerular Filtration Rate Calc 109 >90 mL/min BUN/Creatinine Ratio 10.3 10.0-20.0 Serum Glucose 103 74-106 mg/dL Calcium Level 9.8 8.7-10.4 mg/dL Total Bilirubin 0.3 0.2-1.0 mg/dL Aspartate Amino Transferase (AST) 15 13-40 U/L Alanine Aminotransferase (ALT) 17 7-40 U/L Alkaline Phosphatase 86 46-116 U/L Total Protein 7.9 5.7-8.2 g/dL Albumin 5.0 H 3.2-4.8 g/dL Lipase 40 12-53 U/L Time of 1ST Reevaluation: 19:15 Reevaluation 1ST: Unchanged Patient Education/Counseling: Diagnosis, Treatment, Need For Follow Up Family Education/Counseling: No Family Present Departure 1 Departure Time of Disposition: 21:00 Impression: Primary Impression: Urinary tract infection Additional Impression: Ovarian cyst Disposition: 01 HOME / SELF CARE / HOMELESS Condition: Stable e-Prescriptions Gabapentin (Once-Daily) (Gabapentin) 300 Mg Tab 300 MG PO Q6HP PRN, #30 TAB Prov: ELOY ANDERSON MD 11/16/24 Discharged With: Self Critical Care Note Critical Care Time?: No Stability Stability form required: No Heart Score Heart Score: Heart Score Response (Comments) Value History N/A 0 EKG N/A 0 Age N/A 0 Risk Factors N/A 0 Troponin N/A 0 Total 0 I personally scribed for ELOY ANDERSON MD ([email or web address]) on 11/16/24 at 19:03. Electronically submitted by Jean Flood [email or web address]). ELOY ANDERSON MD November 16, 2024 19:03
[2024-11-16 19:23] LABS: Urine Bacteria None Seen /hpf (None Seen)
[2024-11-16 19:35] LABS: Urine Blood Negative /uL (Negative); Urine Clarity Clear (Clear); Urine Color Colorless (Yellow); Urine Protein, UAD Negative (Negative); Urine Specific Gravity 1.005 (1.001-1.035); Urine Squamous Epithelial Cell FEW /hpf (<5); Urine Urobilinogen Normal (Negative); Urine WBC 1 /HPF (0-5); Urine pH 6.5 (5.0-9.0)
[2024-11-16 19:46] LABS: Basophils # (auto) 0.1 10 ^3/uL (0-0.2); Basophils % (auto) 0.8 % (0.0-2.0); Eosinophils # (auto) 0.2 10 ^3/uL (0-0.8); Eosinophils % (auto) 2.5 % (0.0-7.0); Hemoglobin 13.1 g/dL (12.2-16.2); Lymphocytes # (auto) 2.8 10 ^3/uL (0.4-5.4); Lymphocytes % (auto) 41.1 % (10.0-50.0); Mean Corpuscular Hemoglobin 28.6 pg (28.0-32.0); Mean Corpuscular Hgb Conc. 33.5 g/dL (32.0-36.0); Mean Corpuscular Volume 85.4 fL (80.0-100.0); Monocytes # (auto) 0.5 10 ^3/uL (0-1.3); Monocytes % (auto) 6.8 % (0.0-12.0); Neutrophils # (auto) 3.3 10 ^3/uL (1.6-8.6); Neutrophils % (auto) 48.8 % (37.0-80.0); Nucleated Red Blood Cells % 0.1 %; Platelet Count (auto) 302 10^3/uL (140-450); Red Blood Cells 4.56 10^6/uL (4.0-5.20); Red Cell Distribution Width 13.9 % (11.8-14.3); White Blood Cell 6.8 10^3/uL (4.4-10.8)
[2024-11-16 20:12] LABS: Alanine Aminotransferase 17 U/L (7-40); Alkaline Phosphatase 86 U/L (46-116); Anion Gap 8 (5-15); Aspartate Aminotransferase 15 U/L (13-40); BUN/Creatinine Ratio 10.3 (10.0-20.0); Bilirubin, Total 0.3 mg/dL (0.2-1.0); Calcium 9.8 mg/dL (8.7-10.4); Carbon Dioxide 29 mmol/L (20-31); Chloride 105 mmol/L (98-107); Glucose 103 mg/dL (74-106); Lipase 40 U/L (12-53); Potassium 3.5 mmol/L (3.5-5.1); Sodium 142 mmol/L (136-145); Total Protein 7.9 g/dL (5.7-8.2)
[2024-11-16 20:15] LABS: Blood Urea Nitrogen 7 mg/dL (9-23)
--- NOTE | 2024-11-16 20:32 | DVH ---
Exam: CT CT AB PEL WO CON-NO ORAL OR IV History: left flank pain Comparison Study: CT CT AB PEL WO CON-NO ORAL OR IV on DOS: 08/22/23, CT CT AB PEL WO CON-NO ORAL OR I V on DOS: 10/08/22, CT ABD PELVIS WO CONTRAST on DOS: 08/17/22 TECHNIQUE: Multidetector CT of the abdomen was performed from lung bases to pubic symphysis. Imaging was performed without IV contrast. Axial, coronal and sagittal multiplanar reformats were obtained fr om the axial data set by the technologist. Radiation Dose Information: CT Dose: CTDI volume is 9.95 mGy. Dose-length product is 537.36 mGy*cm FINDINGS: Evaluation of solid organs is limited due to lack of intravenous contrast use. Findings: Lung Bases: No acute or significant lung base finding. Normal heart size. No pleural or pericardial effusion. Liver: The liver is normal in size. No focal lesions. Gallbladder and Biliary Tree: There is gallstone. Spleen: Unremarkable Pancreas: The pancreas is grossly normal in appearance. Adrenal Glands: Unremarkable Kidneys: Kidneys are grossly normal without calculi or hydronephrosis. 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 This could be also exophytic cyst. Bladder: Grossly unremarkable for degree of distention. Bowel: The stomach is grossly normal in appearance. Small bowel and colon are normal in caliber and d istribution. The appendix is not visualized; however, no secondary findings of acute appendicitis id entified. Scattered diverticulosis with no evidence of diverticulitis. There is fecal stasis mostly i n the right colon. Ascites: Absent Lymphadenopathy: No mesenteric, retroperitoneal or periportal lymphadenopathy. Abdominal Wall and Mesentery: Unremarkable. Vasculature: The visualized abdominal aorta is normal in size and caliber. Evaluation of abdominal a nd pelvic vessels is limited due to lack of intravenous contrast. Pelvic Organs: Unremarkable Musculoskeletal: No aggressive focal bony lesions, acute fractures or dislocation. Soft tissues: Unremarkable IMPRESSION: 1. No acute abdominal or pelvic finding. 2. Cholelithiasis 3. Colonic diverticulosis with no evidence of diverticulitisUnchanged From prior CT from 10/08/2022 Radiation optimization: All CT scans at this facility use at least one of these dose optimization devon hniques: automated exposure control mA and/or kV adjustment per patient size (includes targeted exam s where dose is matched to clinical indication) or iterative reconstruction.
[2024-11-16] MEDS ORDERED: GABA300T4 PO (21:01)
[2024-11-16 21:42] VITALS: BP 130/66; PULSE 88; RESP 20; TEMP 97.4; O2SAT 96
== END 2024-11-16 21:44 | disposition home or self-care (01) ==
LOC: ER 18:54
DX: N39.0 Urinary tract infection, site not specified (principal); N83.209 Unspecified ovarian cyst, unspecified side; Z88.8 Allergy status to other drugs, medicaments and biological substances; Z90.721 Acquired absence of ovaries, unilateral; Z90.49 Acquired absence of other specified parts of digestive tract; Z90.710 Acquired absence of both cervix and uterus; Z79.1 Long term (current) use of non-steroidal anti-inflammatories (NSAID); Z79.899 Other long term (current) drug therapy; Z91.041 Radiographic dye allergy status
CPT/HCPCS: 36415; 74176; 80053; 81001; 81025; 83690; 85025

== ENCOUNTER → 2024-12-03 | Outpatient (CLI) | payer BC, MEDICAID ==
[~2024-12-03] MED LIST changes: +GABA300T4 PO
[2024-12-03 16:45] LABS: Alanine Aminotransferase 12 U/L (7-40); Albumin 4.8 g/dL (3.2-4.8); Alkaline Phosphatase 92 U/L (46-116); Anion Gap 8 (5-15); BUN/Creatinine Ratio 16.2 (10.0-20.0); Blood Urea Nitrogen 12 mg/dL (9-23); Calcium 9.5 mg/dL (8.7-10.4); Carbon Dioxide 28 mmol/L (20-31); Chloride 103 mmol/L (98-107); Potassium 3.8 mmol/L (3.5-5.1); Sodium 139 mmol/L (136-145); Total Protein 7.5 g/dL (5.7-8.2)
[2024-12-03 16:47] LABS: Aspartate Aminotransferase 9 U/L (13-40); Bilirubin, Total 0.3 mg/dL (0.2-1.0); Glucose 133 mg/dL (74-106)
== END | disposition home or self-care (01) ==
LOC: LAB 16:16
PROVIDERS: ATTEND Internal Medicine
DX: E78.5 Hyperlipidemia, unspecified (principal)
CPT/HCPCS: 36415; 80053

== ENCOUNTER 2025-01-11 11:05 | Outpatient (CLI) | payer BC, MEDICAID | END 2025-01-11 17:00 | disposition home or self-care (01) | LOC: LAB 11:05 | PROVIDERS: ATTEND Obstetrics & Gynecology | DX: Z80.41 Family history of malignant neoplasm of ovary (principal); Z80.49 Family history of malignant neoplasm of other genital organs | CPT/HCPCS: 86304 ==